=== PATIENT | female | born 1945 | race Caucasian/White ===

== ENCOUNTER 2017-04-07 08:34 | Emergency (ER) | payer MEDICARE, OTHER | END 2017-04-07 10:00 | disposition home or self-care (01) | LOC: ER1 08:34 | DX: R21 Rash and other nonspecific skin eruption (principal); I10 Essential (primary) hypertension; E78.5 Hyperlipidemia, unspecified; Z88.2 Allergy status to sulfonamides; Z88.8 Allergy status to other drugs, medicaments and biological substances; Z79.899 Other long term (current) drug therapy | CPT/HCPCS: 99282 ==

== ENCOUNTER 2021-05-09 15:54 | Emergency (ER) | payer MEDICARE, OTHER ==
[2021-05-09 17:53] LABS: RED BLOOD COUNT 3.89 M/UL (4.00-5.10); WHITE BLOOD COUNT 12.5 K/UL (4.5-11.0)
[2021-05-09 18:12] LABS: BUN/CREATININE RATIO 15 (0-10)
[2021-05-09] MEDS ORDERED: NORFLEX 100 MG100 MG PO (20:26)
[2021-05-09] MEDS ORDERED: LODINE CAP 300300 MG PO (20:26)
== END 2021-05-09 22:00 | disposition home or self-care (01) ==
LOC: ER1 15:54
PROVIDERS: Physician Assistant
DX: S70.01XA Contusion of right hip, initial encounter (principal); S20.211A Contusion of right front wall of thorax, initial encounter; S30.1XXA Contusion of abdominal wall, initial encounter; I25.10 Atherosclerotic heart disease of native coronary artery without angina pectoris; Z90.89 Acquired absence of other organs; Z88.2 Allergy status to sulfonamides; W18.30XA Fall on same level, unspecified, initial encounter; Y92.009 Unspecified place in unspecified non-institutional (private) residence as the place of occurrence of the external cause
CPT/HCPCS: 71260; 72100; 80053; 83690; 85025; 99284; J7030; Q9967

== ENCOUNTER 2021-06-27 10:01 | Emergency (ER) | payer MEDICARE, OTHER ==
[~2021-06-27 10:01] MED LIST: LODINE CAP 300300 MG PO; NORFLEX 100 MG100 MG PO
[2021-06-27 11:45] LABS: RED BLOOD COUNT 4.29 M/UL (4.00-5.10); WHITE BLOOD COUNT 10.9 K/UL (4.5-11.0)
[2021-06-27 12:11] LABS: BUN/CREATININE RATIO 25 (0-10)
[2021-06-27] MEDS ORDERED: CATAPRES 0.1MG0.1 MG PO (12:52)
== END 2021-06-27 13:08 | disposition home or self-care (01) ==
LOC: ER1 10:01
PROVIDERS: Physician Assistant
DX: I10 Essential (primary) hypertension (principal); Z79.899 Other long term (current) drug therapy; Z88.2 Allergy status to sulfonamides
CPT/HCPCS: 80053; 82550; 82553; 83874; 84484; 85025; 93005; 99284

== ENCOUNTER → 2021-07-01 | Outpatient (CLI) | payer MEDICARE, OTHER ==
[~2021-07-01] MED LIST changes: +CATAPRES 0.1MG0.1 MG PO
== END ==
LOC: EXRD 14:33
DX: M25.551 Pain in right hip (principal); M16.11 Unilateral primary osteoarthritis, right hip
CPT/HCPCS: 73502

== ENCOUNTER → 2021-08-05 | Outpatient (CLI) | payer MEDICARE, OTHER | LOC: CT 09:04 | DX: M54.5 Low back pain (principal); M54.16 Radiculopathy, lumbar region; M48.061 Spinal stenosis, lumbar region without neurogenic claudication; M48.07 Spinal stenosis, lumbosacral region; M25.78 Osteophyte, vertebrae | CPT/HCPCS: 72131 ==

== ENCOUNTER → 2021-09-18 | Outpatient (CLI) | payer MEDICARE, OTHER | LOC: RT 10:36 | DX: I10 Essential (primary) hypertension (principal) | CPT/HCPCS: 93005 ==

== ENCOUNTER → 2021-10-03 | Outpatient (CLI) | payer MEDICARE, OTHER ==
[2021-10-03 12:04] LABS: HEMOGLOBIN 12.7 gm/dl (12.3-15.3); RED BLOOD COUNT 4.03 M/UL (4.00-5.10); WHITE BLOOD COUNT 9.5 K/UL (4.5-11.0)
[2021-10-03 12:09] LABS: BUN/CREATININE RATIO 22 (0-10)
== END ==
LOC: LAB 10:27
PROVIDERS: Family Medicine
DX: I10 Essential (primary) hypertension (principal); R73.9 Hyperglycemia, unspecified; M10.9 Gout, unspecified
CPT/HCPCS: 36415; 80053; 80061; 84550; 85027

== ENCOUNTER → 2021-12-24 | Outpatient (CLI) | payer MEDICARE, OTHER | LOC: MAMO 10-29 09:30 | DX: Z12.31 Encounter for screening mammogram for malignant neoplasm of breast (principal) | CPT/HCPCS: 77063; 77067 ==

== ENCOUNTER → 2022-01-16 | Outpatient (CLI) | payer MEDICARE, OTHER | LOC: MAMO 01-06 14:30 → US 01-06 15:00 → MAMO 11:40 | DX: R92.8 Other abnormal and inconclusive findings on diagnostic imaging of breast (principal) | CPT/HCPCS: 76642-LT; 77065; G0279 ==

== ENCOUNTER → 2022-03-12 | Outpatient (CLI) | payer MEDICARE, OTHER | LOC: EXRD 13:00 | DX: Z13.820 Encounter for screening for osteoporosis (principal); Z78.0 Asymptomatic menopausal state | CPT/HCPCS: 77080 ==

== ENCOUNTER 2022-07-24 14:30 | Observation (INO) | payer MEDICARE, OTHER ==
[~2022-07-24] VITALS: Ht 160 cm; Wt 116.7 kg
[2022-07-24 15:41] LABS: RED BLOOD COUNT 4.55 M/UL (4.00-5.10); WHITE BLOOD COUNT 5.3 K/UL (4.5-11.0)
[2022-07-24 16:14] LABS: BUN/CREATININE RATIO 25 (0-10)
[2022-07-24] MEDS ORDERED: ZETIA10 MG PO (19:51)
[2022-07-24] MEDS ORDERED: LISINOPRIL40 MG PO (19:52)
[2022-07-24] MEDS ORDERED: AMLODIPINE BESYL5 MG PO (19:52)
[2022-07-24] MEDS ORDERED: ALLOPURINOL100 MG PO (19:52)
[2022-07-24] MEDS ORDERED: CITALOPRAM HBR20 MG PO (19:53)
[2022-07-24] MEDS ORDERED: HYDROCHLOROTH12.5 MG PO (19:54)
[2022-07-24] MEDS ORDERED: ASPIRIN EC81 MG PO (19:55)
[2022-07-24] MEDS ORDERED: LOPRESSOR 25 MG25 MG PO (19:55)
[2022-07-24] MEDS ORDERED: ONE DAILY MULT1 EAC1 PO (19:56)
[2022-07-24] MEDS ORDERED: VITAMIN B-121000 MC3 PO (19:56)
[2022-07-24] MEDS ORDERED: ACETAMINOPHEN500 MG PO (19:56)
[2022-07-24] MEDS ORDERED: STOOL SOFTENER100 MG PO (19:57)
[2022-07-25 10:04] LABS: BUN/CREATININE RATIO 26 (0-10)
[2022-07-26 05:13] LABS: HEMOGLOBIN 13.1 gm/dl (12.3-15.3); RED BLOOD COUNT 4.34 M/UL (4.00-5.10)
[2022-07-26] MEDS ORDERED: LISINOPRIL20 MG PO (10:42)
[2022-07-26] MEDS ORDERED: CEFUROXIME500 MG PO (10:42)
== END 2022-07-26 15:52 | disposition home or self-care (01) ==
LOC: ER1 14:30 → CDU 17:19 → MED SURG 4 18:36
PROVIDERS: Physician Assistant; ADMIT Internal Medicine Infectious Disease
DX: U07.1 COVID-19 (principal); E87.1 Hypo-osmolality and hyponatremia; T50.2X5A Adverse effect of carbonic-anhydrase inhibitors, benzothiadiazides and other diuretics, initial encounter; E83.42 Hypomagnesemia; E11.9 Type 2 diabetes mellitus without complications; I10 Essential (primary) hypertension; I25.10 Atherosclerotic heart disease of native coronary artery without angina pectoris; M19.90 Unspecified osteoarthritis, unspecified site; Z28.310 Unvaccinated for COVID-19; Z85.038 Personal history of other malignant neoplasm of large intestine; Z90.49 Acquired absence of other specified parts of digestive tract; Z88.2 Allergy status to sulfonamides; Z88.8 Allergy status to other drugs, medicaments and biological substances; Z91.018 Allergy to other foods; Z91.040 Latex allergy status; Z79.82 Long term (current) use of aspirin; Z79.899 Other long term (current) drug therapy
CPT/HCPCS: 36415; 36600; 71045; 80048; 80053; 82803; 83036; 83735; 84439; 84443; 85025; 86140; 87081; 87880; 94640; 94664; 94760; 96365; 96372; 96374; 96375; 96376; 99285; G0378; J0248; J1650; J1885; J3475; J7030; U0002

== ENCOUNTER → 2022-08-05 | Outpatient (CLI) | payer MEDICARE, OTHER ==
[~2022-08-05] MED LIST changes: +ACETAMINOPHEN500 MG PO; +ALLOPURINOL100 MG PO; +AMLODIPINE BESYL5 MG PO; +ASPIRIN EC81 MG PO; +CEFUROXIME500 MG PO; +CITALOPRAM HBR20 MG PO; +HYDROCHLOROTH12.5 MG PO; +LISINOPRIL20 MG PO; +LISINOPRIL40 MG PO; +LOPRESSOR 25 MG25 MG PO; +ONE DAILY MULT1 EAC1 PO; +STOOL SOFTENER100 MG PO; +VITAMIN B-121000 MC3 PO; +ZETIA10 MG PO
== END ==
LOC: MAMO 07-21 10:30 → US 07-21 11:00 → MAMO 13:30
DX: R92.8 Other abnormal and inconclusive findings on diagnostic imaging of breast (principal)
CPT/HCPCS: 76641-LT; 77065; G0279